=== PATIENT | male | born 1965 | race Caucasian/White ===

== ENCOUNTER 2017-07-26 09:37 | Emergency (ER) | payer OTHER ==
[~2017-07-26] VITALS: Ht 167.6 cm; Wt 81.7 kg
[~2017-07-26 09:37] MED LIST: ATEN25 PO; BLOOD PRESSURE MED; CIPRO500 MG PO; FINA5 PO; GUAI600T33 PO; HYDR1TAB94 PO; LISI20 PO; Tylenol325 MG PO
[2017-07-26 10:26] LABS: BASOPHILS ABSOLUTE AUTO 0.01 K/mm3 (0.00-0.23); BASOPHILS PERCENT AUTO 0 % (0-2); EOSINOPHILS ABSOLUTE AUTO 0.18 K/mm3 (0.00-0.68); EOSINOPHILS PERCENT AUTO 1 % (0-6); Hematocrit 47.8 % (37.0-53.0); Hemoglobin 16.9 g/dL (13.5-17.5); IMMATURE GRAN ABSOLUTE AUTO 0.03 K/mm3 (0.00-0.10); IMMATURE GRAN PERCENT AUTO 0 % (0-1); LYMPHOCYTES PERCENT AUTO 33 % (21-46); MONOCYTES ABSOLUTE AUTO 1.05 K/mm3 (0.16-1.47); MONOCYTES PERCENT AUTO 8 % (4-13); Mean Corpuscular HGB 32.6 pg (26.0-34.0); Mean Corpuscular HGB Conc 35.4 g/dL (31.5-36.5); Mean Corpuscular Volume 92 fL (80-100); Mean Platelet Volume 10.2 fL (9.1-12.4); NEUTROPHILS ABSOLUTE AUTO 7.25 K/mm3 (1.96-9.15); NEUTROPHILS PERCENT AUTO 58 % (41-73); Platelet Count 170 K/mm3 (150-400); RDW Coefficient Variation 12.8 % (11.7-14.2); RDW Standard Deviation 43.2 fL (35.1-46.3); Red Blood Cell Count 5.19 M/mm3 (4.30-5.90); White Blood Cell Count 12.62 K/mm3 (4.00-11.30)
[2017-07-26 10:52] LABS: Alanine Aminotransfer (ALT/SGP 28 U/L (12-78); Albumin, Blood 3.9 g/dL (3.4-5.0); Albumin/Globulin Ratio 1.1 (0.8-1.8); Alk Phos 80 U/L (50-136); Anion Gap 7 mmol/L (6-16); Aspartate Aminotrans (AST/SGOT 14 U/L (12-37); Bilirubin, Total 0.9 mg/dL (0.1-1.0); Blood Urea Nitrogen 17 mg/dL (8-24); Bun/Creatinine Ratio 20.9 (12.0-20.0); CO2, Blood 23 mmol/L (21-32); Chloride, Blood 107 mmol/L (98-108); Creatinine, Blood 0.82 mg/dL (0.60-1.20); Globulin, Blood 3.6 g/dL (2.2-4.0); Glomerular Filtration Rate >60 (60-); Glucose, Blood 108 mg/dL (70-99); Potassium, Blood 4.1 mmol/L (3.5-5.5); Sodium, Blood 137 mmol/L (136-145); Total Protein, Blood 7.5 g/dL (6.4-8.2)
[2017-07-26 11:45] LABS: Source, Urine Clean Catch
[2017-07-26 12:07] LABS: Bilirubin, Urine Neg (Neg); Blood, Urine Neg (Neg); Glucose Qualitative, Urine Neg (Neg); Ketones, Urine Neg (Neg); Leukocyte Esterase, Urine Neg (Neg); Nitrite, Urine Neg (Neg); Protein, Urine Neg (Neg); Urobilinogen, Urine NORM (Normal)
[2017-07-26 12:09] LABS: Appearance, Urine Clear (Clear); Color, Urine Yellow (P-Yellow)
[2017-07-26] MEDS ORDERED: Cipro500 MG PO (12:31)
== END 2017-07-26 12:49 | disposition home or self-care (01) ==
LOC: ER 09:37
PROVIDERS: Emergency Medicine
DX: N45.1 Epididymitis (principal); I10 Essential (primary) hypertension; F17.200 Nicotine dependence, unspecified, uncomplicated; Z88.6 Allergy status to analgesic agent; Z79.899 Other long term (current) drug therapy; Z79.2 Long term (current) use of antibiotics
CPT/HCPCS: 36415; 80053; 81003; 85025; 96361; 96372; 96374; 99283; J0696; J1885; J7030

== ENCOUNTER → 2017-07-31 | Outpatient (CLI) | payer OTHER ==
[~2017-07-31] MED LIST changes: +Cipro500 MG PO; +Percocet 10-321 EACH PO; +Roxicodone5 MG PO; +TAMS.4ER PO; +TRAM50 PO
[2017-07-31 16:31] LABS: Specimen Source URINE
[2017-08-01 11:22] LABS: Source Urine
== END ==
LOC: LAB EV 14:45
PROVIDERS: General Practice
DX: N50.811 Right testicular pain (principal)
CPT/HCPCS: 87491; 87591

== ENCOUNTER 2017-11-16 01:27 | Emergency (ER) | payer OTHER ==
[~2017-11-16] VITALS: Ht 177.8 cm; Wt 99.8 kg
[~2017-11-16 01:27] MED LIST changes: -Percocet 10-321 EACH PO; -Roxicodone5 MG PO; -TAMS.4ER PO; -TRAM50 PO
[2017-11-16 03:36] LABS: BASOPHILS ABSOLUTE AUTO 0.04 K/mm3 (0.00-0.23); BASOPHILS PERCENT AUTO 0 % (0-2); EOSINOPHILS ABSOLUTE AUTO 0.14 K/mm3 (0.00-0.68); EOSINOPHILS PERCENT AUTO 1 % (0-6); Hematocrit 44.9 % (37.0-53.0); Hemoglobin 15.6 g/dL (13.5-17.5); IMMATURE GRAN ABSOLUTE AUTO 0.06 K/mm3 (0.00-0.10); IMMATURE GRAN PERCENT AUTO 0 % (0-1); LYMPHOCYTES ABSOLUTE AUTO 2.43 K/mm3 (0.84-5.20); LYMPHOCYTES PERCENT AUTO 16 % (21-46); MONOCYTES ABSOLUTE AUTO 1.17 K/mm3 (0.16-1.47); MONOCYTES PERCENT AUTO 8 % (4-13); Mean Corpuscular HGB 31.3 pg (26.0-34.0); Mean Corpuscular HGB Conc 34.7 g/dL (31.5-36.5); Mean Corpuscular Volume 90 fL (80-100); Mean Platelet Volume 10.2 fL (9.1-12.4); NEUTROPHILS ABSOLUTE AUTO 11.13 K/mm3 (1.96-9.15); NEUTROPHILS PERCENT AUTO 74 % (41-73); Platelet Count 172 K/mm3 (150-400); RDW Coefficient Variation 12.7 % (11.7-14.2); RDW Standard Deviation 41.9 fL (35.1-46.3); Red Blood Cell Count 4.98 M/mm3 (4.30-5.90); White Blood Cell Count 14.97 K/mm3 (4.00-11.30)
[2017-11-16 03:49] LABS: Alanine Aminotransfer (ALT/SGP 27 U/L (12-78); Albumin, Blood 3.7 g/dL (3.4-5.0); Albumin/Globulin Ratio 1.1 (0.8-1.8); Alk Phos 91 U/L (50-136); Anion Gap 7 mmol/L (6-16); Aspartate Aminotrans (AST/SGOT 17 U/L (12-37); Bilirubin, Total 0.3 mg/dL (0.1-1.0); Blood Urea Nitrogen 21 mg/dL (8-24); CO2, Blood 23 mmol/L (21-32); Calcium, Blood 8.8 mg/dL (8.5-10.1); Chloride, Blood 108 mmol/L (98-108); Creatinine, Blood 0.88 mg/dL (0.60-1.20); Globulin, Blood 3.4 g/dL (2.2-4.0); Glomerular Filtration Rate >60 (60-); Glucose, Blood 121 mg/dL (70-99); Potassium, Blood 4.1 mmol/L (3.5-5.5); Sodium, Blood 138 mmol/L (136-145); Total Protein, Blood 7.1 g/dL (6.4-8.2)
[2017-11-16] MEDS ORDERED: Percocet 10-321 EACH PO (04:48)
== END 2017-11-16 05:09 | disposition home or self-care (01) ==
LOC: ER 01:27
PROVIDERS: Emergency Medicine
DX: N45.1 Epididymitis (principal); I10 Essential (primary) hypertension; F17.220 Nicotine dependence, chewing tobacco, uncomplicated; Z88.6 Allergy status to analgesic agent; Z79.2 Long term (current) use of antibiotics
CPT/HCPCS: 36415; 76870; 80053; 85025; 96372; 96374; 99284; J3010

== ENCOUNTER 2017-12-12 19:21 | Emergency (ER) | payer OTHER ==
[~2017-12-12] VITALS: Ht 167.6 cm; Wt 90.7 kg
[~2017-12-12 19:21] MED LIST changes: +Percocet 10-321 EACH PO
[2017-12-12 20:08] LABS: BASOPHILS ABSOLUTE AUTO 0.03 K/mm3 (0.00-0.23); BASOPHILS PERCENT AUTO 0 % (0-2); EOSINOPHILS ABSOLUTE AUTO 0.09 K/mm3 (0.00-0.68); EOSINOPHILS PERCENT AUTO 1 % (0-6); Hematocrit 43.3 % (37.0-53.0); Hemoglobin 15.6 g/dL (13.5-17.5); IMMATURE GRAN ABSOLUTE AUTO 0.07 K/mm3 (0.00-0.10); IMMATURE GRAN PERCENT AUTO 1 % (0-1); LYMPHOCYTES ABSOLUTE AUTO 3.08 K/mm3 (0.84-5.20); LYMPHOCYTES PERCENT AUTO 23 % (21-46); MONOCYTES ABSOLUTE AUTO 0.98 K/mm3 (0.16-1.47); MONOCYTES PERCENT AUTO 7 % (4-13); Mean Corpuscular HGB 31.6 pg (26.0-34.0); Mean Corpuscular Volume 88 fL (80-100); NEUTROPHILS PERCENT AUTO 68 % (41-73); Platelet Count 163 K/mm3 (150-400); RDW Coefficient Variation 12.3 % (11.7-14.2); RDW Standard Deviation 39.5 fL (35.1-46.3); Red Blood Cell Count 4.93 M/mm3 (4.30-5.90); White Blood Cell Count 13.35 K/mm3 (4.00-11.30)
[2017-12-12 20:34] LABS: Source, Urine Catheter
[2017-12-12 20:36] LABS: Alanine Aminotransfer (ALT/SGP 37 U/L (12-78); Alk Phos 83 U/L (50-136); Anion Gap 9 mmol/L (6-16); Aspartate Aminotrans (AST/SGOT 20 U/L (12-37); Bilirubin, Total 0.7 mg/dL (0.1-1.0); Blood Urea Nitrogen 21 mg/dL (8-24); Bun/Creatinine Ratio 22.3 (12.0-20.0); CO2, Blood 22 mmol/L (21-32); Calcium, Blood 9.6 mg/dL (8.5-10.1); Chloride, Blood 102 mmol/L (98-108); Creatinine, Blood 0.94 mg/dL (0.60-1.20); Globulin, Blood 3.9 g/dL (2.2-4.0); Glomerular Filtration Rate >60 (60-); Glucose, Blood 107 mg/dL (70-99); Potassium, Blood 4.4 mmol/L (3.5-5.5); Sodium, Blood 133 mmol/L (136-145); Total Protein, Blood 7.9 g/dL (6.4-8.2)
[2017-12-12 20:39] LABS: Bilirubin, Urine Neg (Neg); Blood, Urine 3+ (Neg); Glucose Qualitative, Urine Neg (Neg); Ketones, Urine Neg (Neg); Leukocyte Esterase, Urine Neg (Neg); Nitrite, Urine Neg (Neg); Protein, Urine 1+ (Neg); Specific Gravity, Urine 1.025 (1.003-1.022); Urobilinogen, Urine NORM (Normal)
[2017-12-12 20:45] LABS: Appearance, Urine Clear (Clear); Color, Urine Yellow (P-Yellow)
[2017-12-12 20:46] LABS: Mucus Light (0-Heavy); Squamous Epithelial Cells Rare /hpf (Few)
[2017-12-12 20:47] LABS: Bacteria Rare /hpf; White Blood Cells, Urine 0-2 /hpf (0-5)
== END 2017-12-12 21:30 | disposition home or self-care (01) ==
LOC: ER 19:21
PROVIDERS: Emergency Medicine
DX: N45.1 Epididymitis (principal); I10 Essential (primary) hypertension; F17.210 Nicotine dependence, cigarettes, uncomplicated; Z88.6 Allergy status to analgesic agent
CPT/HCPCS: 36415; 51702; 80053; 81001; 85025; J0696; J3010

== ENCOUNTER 2018-01-03 17:53 | Emergency (ER) | payer OTHER ==
[~2018-01-03] VITALS: Ht 177.8 cm; Wt 101.6 kg
[2018-01-03] MEDS ORDERED: TAMS.4ER PO (18:28)
[2018-01-03] MEDS ORDERED: TRAM50 PO (18:28)
[2018-01-03 19:22] LABS: BASOPHILS ABSOLUTE AUTO 0.04 K/mm3 (0.00-0.23); BASOPHILS PERCENT AUTO 0 % (0-2); EOSINOPHILS ABSOLUTE AUTO 0.11 K/mm3 (0.00-0.68); EOSINOPHILS PERCENT AUTO 1 % (0-6); Hematocrit 46.9 % (37.0-53.0); Hemoglobin 16.6 g/dL (13.5-17.5); IMMATURE GRAN ABSOLUTE AUTO 0.09 K/mm3 (0.00-0.10); IMMATURE GRAN PERCENT AUTO 1 % (0-1); LYMPHOCYTES ABSOLUTE AUTO 4.21 K/mm3 (0.84-5.20); LYMPHOCYTES PERCENT AUTO 24 % (21-46); MONOCYTES ABSOLUTE AUTO 1.61 K/mm3 (0.16-1.47); MONOCYTES PERCENT AUTO 9 % (4-13); Mean Corpuscular HGB 31.6 pg (26.0-34.0); Mean Corpuscular HGB Conc 35.4 g/dL (31.5-36.5); Mean Corpuscular Volume 89 fL (80-100); Mean Platelet Volume 10.2 fL (9.1-12.4); NEUTROPHILS ABSOLUTE AUTO 11.36 K/mm3 (1.96-9.15); NEUTROPHILS PERCENT AUTO 65 % (41-73); Platelet Count 174 K/mm3 (150-400); RDW Coefficient Variation 12.3 % (11.7-14.2); RDW Standard Deviation 40.8 fL (35.1-46.3); Red Blood Cell Count 5.25 M/mm3 (4.30-5.90); White Blood Cell Count 17.42 K/mm3 (4.00-11.30)
[2018-01-03 19:32] LABS: Anion Gap 12 mmol/L (6-16); Blood Urea Nitrogen 15 mg/dL (8-24); Bun/Creatinine Ratio 16.3 (12.0-20.0); CO2, Blood 23 mmol/L (21-32); Calcium, Blood 9.5 mg/dL (8.5-10.1); Chloride, Blood 102 mmol/L (98-108); Creatinine, Blood 0.92 mg/dL (0.60-1.20); Glomerular Filtration Rate >60 (60-); Glucose, Blood 99 mg/dL (70-99); Potassium, Blood 3.8 mmol/L (3.5-5.5); Sodium, Blood 137 mmol/L (136-145)
[2018-01-03] MEDS ORDERED: Cipro500 MG PO (21:24)
[2018-01-03] MEDS ORDERED: Roxicodone5 MG PO (21:24)
[2018-01-03 21:27] LABS: Source, Urine Clean Catch
[2018-01-03 21:34] LABS: Appearance, Urine Clear (Clear); Bilirubin, Urine Neg (Neg); Blood, Urine 2+ (Neg); Color, Urine Amber (P-Yellow); Glucose Qualitative, Urine Neg (Neg); Ketones, Urine 2+ (Neg); Leukocyte Esterase, Urine 1+ (Neg); Nitrite, Urine Neg (Neg); Protein, Urine Neg (Neg); Urobilinogen, Urine NORM (Normal)
[2018-01-03 21:40] LABS: Red Blood Cells, Urine 0-2 /hpf (0-2)
[2018-01-03 21:41] LABS: Bacteria Mod /hpf; Mucus Light (0-Heavy); Squamous Epithelial Cells Not Seen /hpf (Few)
== END 2018-01-03 21:36 | disposition home or self-care (01) ==
LOC: ER 17:53
PROVIDERS: Emergency Medicine
DX: N45.1 Epididymitis (principal); N50.9 Disorder of male genital organs, unspecified; I10 Essential (primary) hypertension; F17.210 Nicotine dependence, cigarettes, uncomplicated; Z88.6 Allergy status to analgesic agent; Z79.899 Other long term (current) drug therapy
CPT/HCPCS: 36415; 51798; 76870; 80048; 81001; 85025; 96365; 96375; 99284; J0696; J3010

== ENCOUNTER 2020-08-27 11:32 | Emergency (ER) | payer MEDICARE ==
[~2020-08-27] VITALS: Ht 172.7 cm; Wt 95.2 kg
[~2020-08-27 11:32] MED LIST changes: +Roxicodone5 MG PO; +TAMS.4ER PO; +TRAM50 PO
[2020-08-27 12:51] LABS: BASOPHILS ABSOLUTE AUTO 0.05 K/mm3 (0.00-0.23); BASOPHILS PERCENT AUTO 1 % (0-2); EOSINOPHILS ABSOLUTE AUTO 0.17 K/mm3 (0.00-0.68); EOSINOPHILS PERCENT AUTO 2 % (0-6); Hematocrit 46.4 % (37.0-53.0); Hemoglobin 16.7 g/dL (13.5-17.5); IMMATURE GRAN ABSOLUTE AUTO 0.04 K/mm3 (0.00-0.10); IMMATURE GRAN PERCENT AUTO 1 % (0-1); LYMPHOCYTES ABSOLUTE AUTO 3.18 K/mm3 (0.84-5.20); LYMPHOCYTES PERCENT AUTO 38 % (21-46); MONOCYTES ABSOLUTE AUTO 0.83 K/mm3 (0.16-1.47); MONOCYTES PERCENT AUTO 10 % (4-13); Mean Corpuscular HGB 32.6 pg (26.0-34.0); Mean Corpuscular Volume 91 fL (80-100); Mean Platelet Volume 9.7 fL (9.1-12.4); NEUTROPHILS ABSOLUTE AUTO 4.03 K/mm3 (1.96-9.15); NEUTROPHILS PERCENT AUTO 49 % (41-73); Platelet Count 172 K/mm3 (150-400); RDW Coefficient Variation 12.2 % (11.7-14.2); RDW Standard Deviation 40.4 fL (35.1-46.3); Red Blood Cell Count 5.12 M/mm3 (4.30-5.90)
[2020-08-27 13:05] LABS: Alanine Aminotransfer (ALT/SGP 49 U/L (12-78); Albumin, Blood 3.8 g/dL (3.4-5.0); Albumin/Globulin Ratio 1.1 (0.8-1.8); Alk Phos 76 U/L (50-136); Anion Gap 5 mmol/L (6-16); Aspartate Aminotrans (AST/SGOT 36 U/L (12-37); Bilirubin, Total 0.7 mg/dL (0.1-1.0); Blood Urea Nitrogen 22 mg/dL (8-24); Bun/Creatinine Ratio 23.1 (12.0-20.0); CO2, Blood 26 mmol/L (21-32); Calcium, Blood 8.7 mg/dL (8.5-10.1); Chloride, Blood 110 mmol/L (98-108); Creatinine, Blood 0.95 mg/dL (0.60-1.20); Globulin, Blood 3.5 g/dL (2.2-4.0); Glomerular Filtration Rate >60 (60-); Glucose, Blood 87 mg/dL (70-99); Potassium, Blood 4.2 mmol/L (3.5-5.5); Sodium, Blood 141 mmol/L (136-145); Total Protein, Blood 7.3 g/dL (6.4-8.2)
[2020-08-27 13:07] LABS: International Normalized Ratio 0.96; Prothrombin Time Results 10.3 Sec (9.7-11.5)
[2020-08-27] MEDS ORDERED: LISI20 PO (13:31)
[2020-08-27 14:51] LABS: Source, Urine Clean Catch
[2020-08-27 14:54] LABS: Appearance, Urine Clear (Clear); Bilirubin, Urine Neg (Neg); Blood, Urine 1+ (Neg); Color, Urine Yellow (P-Yellow); Glucose Qualitative, Urine Neg (Neg); Ketones, Urine Neg (Neg); Leukocyte Esterase, Urine 2+ (Neg); Nitrite, Urine Neg (Neg); Protein, Urine Neg (Neg); Specific Gravity, Urine 1.025 (1.003-1.022); Urobilinogen, Urine 1+ (Normal)
[2020-08-27] MEDS ORDERED: CLOP75 PO (15:10)
[2020-08-27 15:13] LABS: Bacteria Rare /hpf; Red Blood Cells, Urine 0-2 /hpf (0-2); Squamous Epithelial Cells Not Seen /hpf (Few)
== END 2020-08-27 15:21 | disposition home or self-care (01) ==
LOC: ER 11:32
PROVIDERS: Physician Assistant
DX: I63.9 Cerebral infarction, unspecified (principal); R20.0 Anesthesia of skin; R20.2 Paresthesia of skin; I10 Essential (primary) hypertension; F17.210 Nicotine dependence, cigarettes, uncomplicated; Z88.6 Allergy status to analgesic agent; Z79.899 Other long term (current) drug therapy
CPT/HCPCS: 36415; 70450; 80053; 81001; 84484; 85025; 85610; 87086; 93005; 93010; 99284-25

== ENCOUNTER → 2022-05-27 | Outpatient (CLI) | payer MEDICARE, OTHER ==
[~2022-05-27] MED LIST changes: +CLOP75 PO
== END ==
LOC: LAB SHORT 15:30 → LAB 15:30
PROVIDERS: Family Medicine
DX: Z02.83 Encounter for blood-alcohol and blood-drug test (principal); Z79.899 Other long term (current) drug therapy
CPT/HCPCS: G0480

== ENCOUNTER 2022-10-07 16:48 | Inpatient (IN) | payer MEDICARE ==
[~2022-10-07] VITALS: Ht 177.8 cm; Wt 87.0 kg
[2022-10-07 17:04] LABS: Hematocrit 37.8 % (37.0-53.0); Hemoglobin 13.4 g/dL (13.5-17.5); Mean Corpuscular HGB 32.5 pg (26.0-34.0); Mean Corpuscular HGB Conc 35.4 g/dL (31.5-36.5); Mean Corpuscular Volume 92 fL (80-100); Mean Platelet Volume 10.3 fL (9.1-12.4); Platelet Count 155 K/mm3 (150-400); RDW Coefficient Variation 12.8 % (11.7-14.2); RDW Standard Deviation 43.2 fL (35.1-46.3); Red Blood Cell Count 4.12 M/mm3 (4.30-5.90); White Blood Cell Count 11.07 K/mm3 (4.00-11.30)
[2022-10-07 17:05] LABS: Calcium, Ionized (POC) 1.08 mmol/L (1.10-1.46); Chloride (POC) 105 mmol/L (98-108); Creatinine (POC) 1.2 mg/dL (0.8-1.3); Glucose (ISTAT POC) 108 mg/dL (70-99); Hemoglobin (POC) 14.3 g/dL (13.5-17.5); Potassium (POC) 3.1 mmol/L (3.5-5.5); Sodium (POC) 139 mmol/L (135-148); Total CO2 (POC) 21 mmol/L (21-32)
[2022-10-07 17:42] LABS: Albumin, Blood 4.1 g/dL (3.4-5.0); Albumin/Globulin Ratio 1.4 (0.8-1.8); Bilirubin, Total 0.7 mg/dL (0.1-1.0); Bun/Creatinine Ratio 21.2 (12.0-20.0); Calcium, Blood 9.2 mg/dL (8.5-10.1); Creatinine, Blood 1.04 mg/dL (0.60-1.20); Potassium, Blood 3.2 mmol/L (3.5-5.5); Total Protein, Blood 7.1 g/dL (6.4-8.2)
[2022-10-07 18:16] LABS: BAND PERCENT MAN 1 % (0-8); BASOPHILS PERCENT MAN 0 % (0-2); EOSINOPHILS ABSOLUTE MAN 0.22 K/mm3 (0.00-0.68); EOSINOPHILS PERCENT MAN 2 % (0-6); LYMPHOCYTES % ATYPICAL MANUAL 1 % (0-0); LYMPHOCYTES ABSOLUTE MAN 5.86 K/mm3 (0.84-5.20); LYMPHOCYTES PERCENT MAN 52 % (21-46); MONOCYTES ABSOLUTE MAN 0.66 K/mm3 (0.16-1.47); MONOCYTES PERCENT MAN 6 % (4-13); NEUTROPHILS ABSOLUTE MAN 4.31 K/mm3 (1.96-9.15); SEG NEUTROPHILS PERCENT MAN 38 % (41-73); TOTAL CELLS COUNTED 100
--- NOTE | 2022-10-07 21:44 | NUR ---
ADMISSION: PT ARRIVED TO PCU 4 @2103. PT ABLE TO TRANSFER VIA SBA FROM [facility]. ALERT AND ORIENTED X4, ABLE TO FOLLOW COMMANDS AND MAKE NEEDS KNOWN. STRENGTH EQUAL BILATERALLY, NO FACIAL DROOP NOTED. BP STABLE, HR SB 40'S-60'S, AFEBRILE, SATS >95% ON ROOM AIR. RESPIRATIONS EVEN AND UNLABORED. NO COMPLAINTS OF CP/PRESSURE/SOB. PULSES STRONG AND EQUAL THROUGHOUT. PT WITH TREMORS, DENIES DRINKING. PT STATES "IT IS FROM CHRONIC PAIN BUT A LITTLE WORSE THAN USUAL". MED REC INCOMPLETE, PT UNAWARE OF MEDICATION AND DOSAGES. NS GTT IN R AC @75ML/HR. BED ALARM ON FOR SAFETY, BED IN LOW, CALL LIGHT IN REACH, WILL CONTINUE TO MONITOR
[2022-10-08 04:18] LABS: BASOPHILS ABSOLUTE AUTO 0.03 K/mm3 (0.00-0.23); BASOPHILS PERCENT AUTO 0 % (0-2); EOSINOPHILS ABSOLUTE AUTO 0.15 K/mm3 (0.00-0.68); EOSINOPHILS PERCENT AUTO 2 % (0-6); Hematocrit 38.5 % (37.0-53.0); Hemoglobin 13.5 g/dL (13.5-17.5); IMMATURE GRAN ABSOLUTE AUTO 0.02 K/mm3 (0.00-0.10); IMMATURE GRAN PERCENT AUTO 0 % (0-1); LYMPHOCYTES ABSOLUTE AUTO 2.46 K/mm3 (0.84-5.20); LYMPHOCYTES PERCENT AUTO 32 % (21-46); MONOCYTES ABSOLUTE AUTO 0.86 K/mm3 (0.16-1.47); MONOCYTES PERCENT AUTO 11 % (4-13); Mean Corpuscular HGB 32.7 pg (26.0-34.0); Mean Corpuscular HGB Conc 35.1 g/dL (31.5-36.5); Mean Corpuscular Volume 93 fL (80-100); Mean Platelet Volume 10.4 fL (9.1-12.4); NEUTROPHILS ABSOLUTE AUTO 4.26 K/mm3 (1.96-9.15); NEUTROPHILS PERCENT AUTO 55 % (41-73); Platelet Count 143 K/mm3 (150-400); RDW Coefficient Variation 12.9 % (11.7-14.2); Red Blood Cell Count 4.13 M/mm3 (4.30-5.90); White Blood Cell Count 7.78 K/mm3 (4.00-11.30)
--- NOTE | 2022-10-08 04:19 | NUR ---
SHIFT SUMMARY: PT REMAINS ALERT AND ORIENTED, FORGETFUL AT TIMES. POOR HISTORIAN REGARDING PREVIOUS HOSPITLIZATIONS AND MEDICATIONS. BP STABLE. HR REMAINS SINUS KELLY 40'S. PT COMPLAINING DIZZINESS/WEAKNESS WITH ACTIVITY. EDUCATION PROVIDED ON STAYING IN BED AND NOT GETTING UP WITHOUT STAFF. BED ALARM IN PLACE FOR SAFETY. PT STATED "FULLNESS IN BLADDER" AROUND 0400. NOT BEING ABLE TO VOID. BLADDER SCAN SHOWED [phone], CALL PLACED TO MD, ORDER FOR STRAIGHT CATH RECEIVED, APPROX 700ML OF YELLOW URINE DRAINED, TOLERATED WELL. NS GTT IN R AC AT 75 ML/HR. PT REPOS IND IN BED, BED ALARM ON, CALL LIGHT IN REACH, WILL REPORT TO ONCOMING RN.
[2022-10-08 04:45] LABS: Albumin, Blood 3.6 g/dL (3.4-5.0); Anion Gap 2 mmol/L (6-16); Blood Urea Nitrogen 26 mg/dL (8-24); Bun/Creatinine Ratio 30.8 (12.0-20.0); CO2, Blood 24 mmol/L (21-32); Chloride, Blood 112 mmol/L (98-108); Creatinine, Blood 0.85 mg/dL (0.60-1.20); Glomerular Filtration Rate 101 (60-); Glucose, Blood 96 mg/dL (70-99); Magnesium, Blood 2.5 mg/dL (1.6-2.4); Phosphorus, Blood 3.8 mg/dL (2.5-4.9); Potassium, Blood 4.3 mmol/L (3.5-5.5); Sodium, Blood 138 mmol/L (136-145)
[2022-10-08] MEDS ORDERED: DILT60 PO (06:30)
[2022-10-08] MEDS ORDERED: Norco 5-325 MG PO (06:31)
[2022-10-08] MEDS ORDERED: METO25ER PO (06:32)
[2022-10-08] MEDS ORDERED: OMEP20ER PO (06:34)
[2022-10-08] MEDS ORDERED: XARELTO2.5 M1 PO (06:35)
[2022-10-08] MEDS ORDERED: FLOMAX0.4 MG PO (06:36)
[2022-10-08] MEDS ORDERED: TIZANIDINE HCL2 M1 PO (06:37)
[2022-10-08] MEDS ORDERED: TRAZ50 PO (06:38)
--- NOTE | 2022-10-08 07:43 | NUR ---
AM NOTE PT APPEARS TO BE SLEEPING. CALLS APPROPRIATELY FOR ASSISTANCE TO BATHROOM. PT ALERT, ORIENTED TO PERSON, PLACE, EVENT; UNSURE OF DATE BUT KNOWS PRESIDENT. PT UP TO THE BATHROOM IND. PT DENEIS PAIN, CHEST PAIN/PRESSURE, SOB, NAUSEA A ND DIZZINESS/LIGHTHEADEDNESS AT THIS TIME. WHILE PATIENT UP AND WALKING, TELE SINUS AT 60'S WITH PAC'S, WHILE AT REST SINUS KELLY 40'S, BP STALBE. SPO2 >90% ON RA, BREATHING EVEN AND UNLABORED. ABD SOFT NONTENDER, BT+x4. PT UP TO BATHROOM AND VOIDED THIS AM. OTHER VSS. PT EXPRESSING DESIRE TO GO HOME TODAY. WILL CONTINUE TO MONITOR.
--- NOTE | 2022-10-08 17:53 | NUR ---
Shift Summary Pt has had an increase of bigeminy per telephone ad taker, notified MD. Pt expresses desire to go home. Elevated bp this afternoon, pt reporting dizziness while lying down and closing eyes, md notified. Awaiting echo results. other vss. No other acute changes noted. Will continue to moniotr.
[2022-10-09 04:23] LABS: BASOPHILS ABSOLUTE AUTO 0.02 K/mm3 (0.00-0.23); BASOPHILS PERCENT AUTO 0 % (0-2); EOSINOPHILS ABSOLUTE AUTO 0.15 K/mm3 (0.00-0.68); EOSINOPHILS PERCENT AUTO 2 % (0-6); Hematocrit 38.6 % (37.0-53.0); Hemoglobin 13.2 g/dL (13.5-17.5); IMMATURE GRAN ABSOLUTE AUTO 0.01 K/mm3 (0.00-0.10); IMMATURE GRAN PERCENT AUTO 0 % (0-1); LYMPHOCYTES PERCENT AUTO 41 % (21-46); MONOCYTES ABSOLUTE AUTO 0.62 K/mm3 (0.16-1.47); MONOCYTES PERCENT AUTO 10 % (4-13); Mean Corpuscular HGB 32.1 pg (26.0-34.0); Mean Corpuscular HGB Conc 34.2 g/dL (31.5-36.5); Mean Corpuscular Volume 94 fL (80-100); Mean Platelet Volume 10.6 fL (9.1-12.4); NEUTROPHILS ABSOLUTE AUTO 2.87 K/mm3 (1.96-9.15); NEUTROPHILS PERCENT AUTO 47 % (41-73); Platelet Count 141 K/mm3 (150-400); RDW Coefficient Variation 12.8 % (11.7-14.2); RDW Standard Deviation 44.1 fL (35.1-46.3); Red Blood Cell Count 4.11 M/mm3 (4.30-5.90); White Blood Cell Count 6.17 K/mm3 (4.00-11.30)
[2022-10-09 04:39] LABS: Bun/Creatinine Ratio 31.9 (12.0-20.0); Calcium, Blood 8.9 mg/dL (8.5-10.1); Creatinine, Blood 0.82 mg/dL (0.60-1.20); Potassium, Blood 4.1 mmol/L (3.5-5.5)
--- NOTE | 2022-10-09 04:42 | NUR ---
SHIFT SUMMARY: PT ALERT AND ORIENTED, ABLE TO FOLLOW COMMANDS AND MAKE NEEDS KNOWN. FORGETFUL AT TIMES. BP STABLE, HR SB-SR 40'S-60'S, AFEBRILE, SATS >95% ON ROOM AIR. NO COMPLAINTS OF DIZZINESS THROUGHOUT THE NIGHT. PT WITH INCREASED BIGEMINY AT TIMES PER TELETECH. CONSULT FOR CARDIOLOGY ORDERED, LEFT MESSAGE ON ANSWERING MACHINE AT APPROX 0000. MEDICATED X2 FOR CHRONIC NECK PAIN WITH GOOD RESULTS. PT STATES "HE IS READY TO HOME AND FEELS FINE". PT ENCOURAGED TO REMAIN IN HOSPITAL UNTIL DISCHARGED BY MD. PT AGREEABLE TO PLAN. BED IN LOW, CALL LIGHT IN REACH, WILL REPORT TO ONCOMING RN.
[2022-10-09 09:56] LABS: CHOL/HDL RATIO 5.8; Cholesterol 174 mg/dL (50-200); HDL Cholesterol 30 mg/dL (>39); LDL/HDL RATIO 4.2; Low Density Lipoprotein Chol 126 mg/dL (0-110); Thyroid Stimulating Hormone 0.688 uIU/mL (0.360-4.800); Triglycerides 89 mg/dL (30-160); Very Low Density Lipoprot Chol 17 mg/dL (6-32)
--- NOTE | 2022-10-09 10:31 | NUR ---
AM NOTE: PATIENT ALERT AND ORIENTED. VERY ANXIOUS AND DOES NOT WANT TO BE AT HOSPITAL. STATES "I AM LEAVING TONIGHT AND HAVE ALREADY MADE UP MY MIND". PATIENT WILLING TO WAIT AND TALK WITH CARDIOLOGY. TREMORS NOTED THROUGHOUT. PATIENT STATES HE DOES NOT DRINK. CHRONIC NECK PAIN. AMBULATING TO BATHROOM WITH SBA AND AT TIMES IND. DENIES DIZZINESS/FEELING FAINT. TELE SHOWING SB WITH HR 40'S. BP STABLE. DENIES CHEST PAIN/PRESSURE. PPP. HOLDING BLOOD THINNERS UNTIL SEEN BY CARDIOLOGY. NPO AT THIS TIME. DENIES ABDOMINAL PAIN/NAUSEA. UP TO BATHROOM TO VOID. ON ROOM AIR, LUNGS SOUNDING CLEAR AND DIM IN BASES. DENIES SOB. PATIENT STATES HE USED TO WEAR CPAP AT HOME FOR SLEEP APNEA BUT HAS NOT BEEN COMPLIANT WITH IT FOR A COUPLE YEARS. STATES HE NEEDS TO JUST START WEARING THAT AND HIS HEART WILL BE FIXED. SPOKE WITH SISTER ANGEL THIS MORNING . CALL LIGHT IN REACH. WILL CONTINUE TO MONITOR.
--- NOTE | 2022-10-09 12:27 | NUR ---
DR. RIOS BY TO SEE PATIENT. PLAN FOR POSSIBLE PACER THIS AFTERNOON OR ON 10/10. PATIENT AGGREABLE AND WILLING TO STAY AND PARTICIPATE IN POST PACER CARE AND PRECAUTIONS. EKG DONE AT BEDSIDE WITH DR. RIOS PRESENT. REMAINS NPO AT THIS TIME. BED ALARM IN PLACE. CONSENT SIGNED. SISTER ANGEL CALLED AND UPDATED WITH PATIENT PERMISSION. CALL LIGHT IN REACH.
--- NOTE | 2022-10-09 13:43 | NUR ---
PATIENT TO HEART CENTER AT THIS TIME
--- NOTE | 2022-10-09 17:32 | NUR ---
PATIENT RETURNS POST PACER. POST VITALS IN PROGRESS. SBP 170'S-190'S. DR. ROSADO CALLED AND HOME METOPROLOL SUCCINATE 25 MG PO DAILY TO START NOW. POST PACER EDUCATION REVIEWED AND PATIENT WEARING SHOULDER IMMOBILIZER TO HELP REMIND PATIENT TO MAINTAIN POST PACER SHOULDER PRECAUTIONS. PACER CARD IN CHART. PACER SITE WITH PRESSURE DRESSING IN PLACE. DRESSING REMAINS C/D/I. POST CHEST XRAY COMPLETED. PLAN FOR XRAY AND INTERROGATION IN AM.
--- NOTE | 2022-10-09 18:09 | NUR ---
SHIFT SUMMARY: SEE PREVIOUS NOTES FOR UPDATES. PATIENT VERY FORGETFUL AND IMPULSIVE. SHOULDER IMMOBILIZER IN PLACE TO HELP REMIND PATIENT TO NOT BREAK POST PACER SHOULDER PRECAUTIONS. EDUCATION POST PACER REVIEWED WITH PATIENT AND WRITTEN DIRECTIONS GIVEN TO PATIENT. PATIENT HAS READ OVER TWICE. WILL CONINUE TO REINFORCE EDUCATION. VITAL SIGNS STABLE WITH ELEVATED BP. PO METOPROLOL GIVEN. ON ROOM AIR. USING URINAL TO VOID. EATING WNL. DENIES PAIN. PRESSURE DRESSING REMAINS C/D/I. SPOKE WITH SISTER ANGEL AND PROVIDED UPDATE POST PACER. PATIENT TALKING ON PHONE WITH SISTER AT THIS TIME. BED ALARM IN PLACE.
[2022-10-10 03:50] LABS: BASOPHILS ABSOLUTE AUTO 0.03 K/mm3 (0.00-0.23); BASOPHILS PERCENT AUTO 0 % (0-2); EOSINOPHILS ABSOLUTE AUTO 0.14 K/mm3 (0.00-0.68); EOSINOPHILS PERCENT AUTO 1 % (0-6); Hematocrit 40.9 % (37.0-53.0); IMMATURE GRAN ABSOLUTE AUTO 0.03 K/mm3 (0.00-0.10); IMMATURE GRAN PERCENT AUTO 0 % (0-1); LYMPHOCYTES ABSOLUTE AUTO 2.36 K/mm3 (0.84-5.20); LYMPHOCYTES PERCENT AUTO 22 % (21-46); MONOCYTES ABSOLUTE AUTO 1.07 K/mm3 (0.16-1.47); MONOCYTES PERCENT AUTO 10 % (4-13); Mean Corpuscular HGB 31.9 pg (26.0-34.0); Mean Corpuscular HGB Conc 34.2 g/dL (31.5-36.5); Mean Corpuscular Volume 93 fL (80-100); Mean Platelet Volume 10.4 fL (9.1-12.4); NEUTROPHILS ABSOLUTE AUTO 7.12 K/mm3 (1.96-9.15); NEUTROPHILS PERCENT AUTO 66 % (41-73); Platelet Count 148 K/mm3 (150-400); RDW Coefficient Variation 12.3 % (11.7-14.2); RDW Standard Deviation 42.7 fL (35.1-46.3); Red Blood Cell Count 4.39 M/mm3 (4.30-5.90); White Blood Cell Count 10.75 K/mm3 (4.00-11.30)
[2022-10-10 04:09] LABS: Calcium, Blood 8.8 mg/dL (8.5-10.1); Creatinine, Blood 0.86 mg/dL (0.60-1.20)
--- NOTE | 2022-10-10 05:57 | NUR ---
SHIFT SUMMARY PATIENT ALERT AND ORIENTED. MEDICATED PER EMAR FOR PAIN. PATIENT DENIES HAVING ANY DIZZINESS, EVEN WHEN STANDING, STATES THAT HE IS FEELING BETTER. BLOOD PRESSURE STILL ELEVATED BUT TRENDING DOWN. HEART IS PACED WITH FREQUENT PVC'S. PRESSURE DRESSING STIL IN PLACE OVER PACER SITE. SHOULDER IMMOBILIZER IN PLACE. LUNG SOUNDS CLEAR. NO ACUTE ISSUES NOTED OVERNIGHT. CALL LIGHT WITHIN REACH.
--- NOTE | 2022-10-10 08:37 | NUR ---
AM NOTE: PATIENT ALERT AND ORIENTED. STATES HE IS FEELING OVERALL MUCH BETTER AFTER PACER HAS BEEN PLACED. SBA. FORGETFUL AT TIMES. OT CALLED THIS AM AND PLAN TO DO COGNITIVE EVAL AROUND 0930. TELE SHOWING ATRIAL PACED WITH PVC'S. DENIES CHEST PAIN/PRESSURE. BP STABLE. LEFT CHEST WALL PACER PRESSURE DRESSING REMAINS INTACT AND CLEAN. CHEST XRAY COMPLETED WELL PACER INTERROGATION. PATIENT COMPLAINS OF SOME NECK SORNESS THIS MORNING, MEDICATED PER EMAR. EATING AND VOIDING WNL. BOWEL TONES PRESENT. PPP. ANXIOUS TO GO HOME.
[2022-10-10] MEDS ORDERED: ATOR10 PO (11:51)
[2022-10-10] MEDS ORDERED: QUET25 PO (11:53)
[2022-10-10] MEDS ORDERED: CEPH500 PO (11:53)
[2022-10-10] MEDS ORDERED: PANT40 PO (11:54)
--- NOTE | 2022-10-10 13:10 | NUR ---
DSCHARGE: NO ACUTE CHANGES. VITAL SIGNS STABLE. DISCHARGE PACKET REVIEWED WITH PATIENT AND PATIENT BROTHER IN LAW. THIS RN EDUCATED ON POST PACER SHOULDER PRECAUTIONS, FOLLOW UP APPOINTMENT WITH PACER CLINIC AND WOUND PACER CLINIC WELL PCP. NEW MEDICATIONS, TO HOL PLAVIX AND XERALTO UNTIL CLEARED BY CARDIOLOGY, AND MEDICATIONS TO STOP. FAXED TO [facility]. PATIENT LEFT WEARING SLING. PATIENT ABLE TO VERBALIZE ALL PACER INSTUCTIONS BACK TO THIS RN. TEMPORARY PACER CARD IN DISCHARGE PACKET AND PATIENT EDUCATED ON. DRESSING C/D/I. PATIENT REFUSED WHEELCHAIR ON WAY OUT. LEFT WITH ALL PERSONAL BELONGINGS.
== END 2022-10-10 12:50 | disposition home or self-care (01) | DRG 243 ==
LOC: ER 16:48 → PCU 19:21
PROVIDERS: Emergency Medicine; Family Medicine; Internal Medicine Cardiovascular Disease; ADMIT Internal Medicine
PROC: 0JH606Z Insertion of Pacemaker, Dual Chamber into Chest Subcutaneous Tissue and Fascia, Open Approach (ICD-10-PCS; principal; 2022-10-09)
PROC: 02H63JZ Insertion of Pacemaker Lead into Right Atrium, Percutaneous Approach (ICD-10-PCS; 2022-10-09)
PROC: 02HK3JZ Insertion of Pacemaker Lead into Right Ventricle, Percutaneous Approach (ICD-10-PCS; 2022-10-09)
DX: I49.5 Sick sinus syndrome (principal); F17.213 Nicotine dependence, cigarettes, with withdrawal; I45.89 Other specified conduction disorders; I10 Essential (primary) hypertension; E78.5 Hyperlipidemia, unspecified; Z87.820 Personal history of traumatic brain injury; Z85.028 Personal history of other malignant neoplasm of stomach; G47.33 Obstructive sleep apnea (adult) (pediatric); F10.11 Alcohol abuse, in remission; E87.6 Hypokalemia; I73.9 Peripheral vascular disease, unspecified; N40.0 Benign prostatic hyperplasia without lower urinary tract symptoms; R41.3 Other amnesia; J44.9 Chronic obstructive pulmonary disease, unspecified; G89.4 Chronic pain syndrome
CPT/HCPCS: 33208; 36415; 51701; 70450; 71045; 71046; 76937; 80047; 80048; 80053; 80061; 80069; 83735; 84443; 84484; 85014; 85025; 93005; 93010; 93306; 93880; 96365; 96375; 97129; 97165; 99152; 99153; 99285-25; A9270; C1781; C1785; C1894; C1898; J0610; J0690; J1610; J1644; J2250; J2405; J3010; J3475; J7030; J7040; J7050

== ENCOUNTER 2023-05-16 14:32 | Emergency (ER) | payer MEDICARE ==
[~2023-05-16] VITALS: Ht 182.9 cm; Wt 90.7 kg
[~2023-05-16 14:32] MED LIST changes: +ATOR10 PO; +CEPH500 PO; +DILT60 PO; +FLOMAX0.4 MG PO; +METO25ER PO; +Norco 5-325 MG PO; +OMEP20ER PO; +PANT40 PO; +QUET25 PO; +TIZANIDINE HCL2 M1 PO; +TRAZ50 PO; +XARELTO2.5 M1 PO
[2023-05-16 15:28] LABS: BASOPHILS ABSOLUTE AUTO 0.04 K/mm3 (0.00-0.23); BASOPHILS PERCENT AUTO 0 % (0-2); EOSINOPHILS PERCENT AUTO 1 % (0-6); Hematocrit 44.2 % (37.0-53.0); Hemoglobin 15.7 g/dL (13.5-17.5); IMMATURE GRAN ABSOLUTE AUTO 0.04 K/mm3 (0.00-0.10); IMMATURE GRAN PERCENT AUTO 0 % (0-1); LYMPHOCYTES ABSOLUTE AUTO 2.97 K/mm3 (0.84-5.20); LYMPHOCYTES PERCENT AUTO 23 % (21-46); MONOCYTES ABSOLUTE AUTO 0.92 K/mm3 (0.16-1.47); MONOCYTES PERCENT AUTO 7 % (4-13); Mean Corpuscular HGB 32.3 pg (26.0-34.0); Mean Corpuscular HGB Conc 35.5 g/dL (31.5-36.5); Mean Corpuscular Volume 91 fL (80-100); Mean Platelet Volume 10.3 fL (9.1-12.4); NEUTROPHILS ABSOLUTE AUTO 8.64 K/mm3 (1.96-9.15); NEUTROPHILS PERCENT AUTO 68 % (41-73); Platelet Count 142 K/mm3 (150-400); RDW Coefficient Variation 12.2 % (11.7-14.2); RDW Standard Deviation 40.8 fL (35.1-46.3); Red Blood Cell Count 4.86 M/mm3 (4.30-5.90); White Blood Cell Count 12.71 K/mm3 (4.00-11.30)
[2023-05-16 15:42] LABS: Albumin, Blood 3.8 g/dL (3.4-5.0); Albumin/Globulin Ratio 1.2 (0.8-1.8); Bilirubin, Total 0.8 mg/dL (0.1-1.0); Bun/Creatinine Ratio 22.4 (12.0-20.0); Calcium, Blood 9.3 mg/dL (8.5-10.1); Creatinine, Blood 0.98 mg/dL (0.60-1.20); Globulin, Blood 3.2 g/dL (2.2-4.0); Potassium, Blood 3.5 mmol/L (3.5-5.5)
[2023-05-16 17:45] VITALS: BP 146/128
== END 2023-05-16 17:57 | disposition home or self-care (01) ==
LOC: ER 14:32
PROVIDERS: Emergency Medicine
DX: S06.9X9A Unspecified intracranial injury with loss of consciousness of unspecified duration, initial encounter (principal); I10 Essential (primary) hypertension; F17.210 Nicotine dependence, cigarettes, uncomplicated; Z88.6 Allergy status to analgesic agent; Z79.01 Long term (current) use of anticoagulants; Z79.02 Long term (current) use of antithrombotics/antiplatelets; Z79.899 Other long term (current) drug therapy; X58.XXXA Exposure to other specified factors, initial encounter
CPT/HCPCS: 80053; 84484; 85025; A9270; J0360

== ENCOUNTER → 2023-07-01 | Outpatient (CLI) | payer MEDICARE ==
[2023-07-01 17:25] LABS: BASOPHILS ABSOLUTE AUTO 0.05 K/mm3 (0.00-0.23); BASOPHILS PERCENT AUTO 1 % (0-2); EOSINOPHILS ABSOLUTE AUTO 0.28 K/mm3 (0.00-0.68); EOSINOPHILS PERCENT AUTO 3 % (0-6); Hematocrit 41.1 % (37.0-53.0); Hemoglobin 14.3 g/dL (13.5-17.5); IMMATURE GRAN ABSOLUTE AUTO 0.06 K/mm3 (0.00-0.10); IMMATURE GRAN PERCENT AUTO 1 % (0-1); LYMPHOCYTES ABSOLUTE AUTO 2.94 K/mm3 (0.84-5.20); LYMPHOCYTES PERCENT AUTO 28 % (21-46); MONOCYTES ABSOLUTE AUTO 0.89 K/mm3 (0.16-1.47); MONOCYTES PERCENT AUTO 9 % (4-13); Mean Corpuscular HGB 32.1 pg (26.0-34.0); Mean Corpuscular HGB Conc 34.8 g/dL (31.5-36.5); Mean Corpuscular Volume 92 fL (80-100); Mean Platelet Volume 9.7 fL (9.1-12.4); NEUTROPHILS ABSOLUTE AUTO 6.15 K/mm3 (1.96-9.15); NEUTROPHILS PERCENT AUTO 59 % (41-73); Platelet Count 144 K/mm3 (150-400); RDW Coefficient Variation 12.3 % (11.7-14.2); RDW Standard Deviation 41.5 fL (35.1-46.3); Red Blood Cell Count 4.46 M/mm3 (4.30-5.90); White Blood Cell Count 10.37 K/mm3 (4.00-11.30)
[2023-07-01 17:54] LABS: Albumin, Blood 3.7 g/dL (3.4-5.0); Albumin/Globulin Ratio 1.1 (0.8-1.8); Bilirubin, Total 0.3 mg/dL (0.1-1.0); Bun/Creatinine Ratio 27.8 (12.0-20.0); Calcium, Blood 9.1 mg/dL (8.5-10.1); Creatinine, Blood 0.94 mg/dL (0.60-1.20); Globulin, Blood 3.5 g/dL (2.2-4.0); Potassium, Blood 4.4 mmol/L (3.5-5.5); Total Protein, Blood 7.2 g/dL (6.4-8.2)
== END ==
LOC: LAB 17:20 → LAB SHORT 17:20
PROVIDERS: Physician Assistant
DX: R10.9 Unspecified abdominal pain (principal)
CPT/HCPCS: 80053; 83690; 85025

== ENCOUNTER → 2023-07-10 | Outpatient (CLI) | payer MEDICARE, OTHER ==
[2023-07-10 16:48] LABS: Adenovirus F 40/41 Not Detected (NOT DETECT); Astrovirus Not Detected (NOT DETECT); Campylobacter Sp Not Detected (NOT DETECT); Cryptosporidium Not Detected (NOT DETECT); Cyclospora Cayetanensis Not Detected (NOT DETECT); E. Coli O157 Not Detected (NOT DETECT); Entamoeba Histolytica Not Detected (NOT DETECT); Enteroaggregative E. coli-EAEC Not Detected (NOT DETECT); Enteropathogenic E. coli-EPEC Not Detected (NOT DETECT); Enterotoxigenic E. coli-ETEC Not Detected (NOT DETECT); Giardia Lamblia Not Detected (NOT DETECT); Norovirus GI/GII Not Detected (NOT DETECT); Plesiomonas Shigelloides Not Detected (NOT DETECT); Rotavirus A Not Detected (NOT DETECT); Salmonella Sp Not Detected (NOT DETECT); Sapovirus Not Detected (NOT DETECT); Shiga Toxin-prod E. coli-STEC Not Detected (NOT DETECT); Shigella/Enteroin E. coli-EIEC Not Detected (NOT DETECT); Vibrio Cholerae Not Detected (NOT DETECT); Vibrio Sp Not Detected (NOT DETECT); Yersinia Enterocolitica Not Detected (NOT DETECT)
== END ==
LOC: LAB SHORT 11:00 → LAB 11:00
PROVIDERS: Family Medicine
DX: A09 Infectious gastroenteritis and colitis, unspecified (principal)
CPT/HCPCS: 87507